=== PATIENT | male | born 2000 | race Caucasian/White ===

== ENCOUNTER 2023-07-26 13:45 | Emergency (ER) | payer OTHER ==
[~2023-07-26] VITALS: Ht 170.2 cm; Wt 87.0 kg
[2023-07-26 13:45] VITALS: BP 143/71; TEMP 98.1; O2SAT 97
[2023-07-26 16:18] LABS: Trichomonas vaginalis (AMP) NOT DETECTED (NEGATIVE)
[2023-07-26 16:41] LABS: GC DNA AMPLIFICATION NEGATIVE (NEGATIVE)
[2023-07-26] MEDS ORDERED: IBUP-1022 PO (16:41)
== END 2023-07-26 16:59 | disposition home or self-care (01) ==
LOC: M ED 13:45
DX: N50.3 Cyst of epididymis (principal); Z79.1 Long term (current) use of non-steroidal anti-inflammatories (NSAID)

== ENCOUNTER 2023-08-28 18:03 | Emergency (ER) | payer OTHER ==
[~2023-08-28] VITALS: Ht 170.2 cm; Wt 88.0 kg
[~2023-08-28 18:03] MED LIST: IBUP-1022 PO
[2023-08-28] MEDS: KETOROLAC 60MG 2ML VIAL IM ONE (19:38)
[2023-08-28 20:05] LABS: Trichomonas vaginalis (AMP) NOT DETECTED (NEGATIVE)
[2023-08-28 20:28] LABS: GC DNA AMPLIFICATION NEGATIVE (NEGATIVE)
[2023-08-28] MEDS ORDERED: IBUP-1022 PO (21:06)
[2023-08-28 21:18] VITALS: BP 132/68; TEMP 98.3; O2SAT 98
== END 2023-08-28 21:28 | disposition home or self-care (01) ==
LOC: M ED 18:03
DX: N45.2 Orchitis (principal); F17.290 Nicotine dependence, other tobacco product, uncomplicated; Z79.1 Long term (current) use of non-steroidal anti-inflammatories (NSAID)
CPT/HCPCS: 76870; 81001; 87661; 87810; 87850; 93976; 96372; 99284; J1885

== ENCOUNTER → 2023-10-05 | Outpatient (CLI) | payer OTHER ==
[2023-10-05 10:41] LABS: HEMATOCRIT 45.9 % (42.0-52.0); HEMOGLOBIN 16.4 g/dl (13.5-17.5); MEAN CORPUSCULAR HEMOGLOBIN 32.2 pg (27.0-33.0); MEAN CORPUSCULAR HGB CONC 35.7 g/dl (32.0-36.5); PLATELET COUNT, AUTOMATED 248 10^3/uL (150-450); WHITE BLOOD COUNT 5.1 10^3/uL (4.0-10.0)
[2023-10-05 11:04] LABS: LDH LACTATE DEHYDROGENASE 140 U/L (120-246)
[2023-10-05 11:05] LABS: ALBUMIN 4.4 G/DL (3.2-5.2); ALKALINE PHOSPHATASE 88 U/L (46-116); ALT/SGPT 54 U/L (7.0-40); AST/SGOT 26 U/L (<34); BILIRUBIN,TOTAL 0.6 MG/DL (0.3-1.2); BLOOD UREA NITROGEN 20 MG/DL (9-23); CALCIUM LEVEL 9.1 MG/DL (8.5-10.1); CARBON DIOXIDE LEVEL 26 MMOL/L (20-31); CHLORIDE LEVEL 109 MMOL/L (98-107); CREATININE FOR GFR 1.03 MG/DL (0.70-1.30); GLOMERULAR FILTRATION RATE > 60.0 (>60); GLUCOSE, FASTING 86 MG/DL (60-100); POTASSIUM SERUM 4.2 MMOL/L (3.5-5.1); SODIUM LEVEL 141 MMOL/L (136-145); TOTAL PROTEIN 7.1 G/DL (5.7-8.2)
[2023-10-05 12:36] LABS: APPEARANCE, URINE CLEAR (CLEAR); BACTERIA, URINE AUTO NEGATIVE (NEGATIVE); BILIRUBIN, URINE AUTO NEGATIVE (NEGATIVE); BLOOD, URINE BLOOD NEGATIVE (NEGATIVE); COLOR, URINE YELLOW (YELLOW); GLUCOSE, URINE (UA) AUTO NEGATIVE (NEGATIVE); KETONE, URINE AUTO NEGATIVE (NEGATIVE); LEUKOCYTE ESTERASE, URINE AUTO NEGATIVE (NEGATIVE); MUCUS, URINE SMALL (NEGATIVE); NITRITE, URINE AUTO NEGATIVE (NEGATIVE); PROTEIN, URINE AUTO NEGATIVE (NEGATIVE); RBC, URINE AUTO 1 /HPF (0-3); SPECIFIC GRAVITY URINE AUTO 1.027 (1.002-1.035); SQUAMOUS EPITHELIAL CELL UR AU 0 /HPF (0-6); UROBILINOGEN, URINE AUTO 0.2 mg/dL (0.0-2.0); WBC, URINE AUTO 1 /HPF (0-3)
== END ==
LOC: M LAB 09:49
PROVIDERS: ATTEND Urology
DX: N50.82 Scrotal pain (principal)

== ENCOUNTER 2023-10-13 09:38 | Day surgery (SDC) | payer OTHER ==
[~2023-10-13] VITALS: Ht 170.2 cm; Wt 85.4 kg
[~2023-10-13 09:38] MED LIST changes: +TRAZ-252 PO
[2023-10-13] MEDS: LR 1,000 ML IV SCH (10:24)
[2023-10-13] MEDS ORDERED: LIDOCAINE 2% 100MG/5ML SDV (FOR ANES.) As Ordered ONE (11:32)
[2023-10-13] MEDS ORDERED: KETOROLAC 60MG 2ML VIAL As Ordered ONE (11:32)
[2023-10-13] MEDS ORDERED: fentaNYL 100 MCG/2 ML INJECTION As Ordered ONE (11:32)
[2023-10-13] MEDS ORDERED: ONDANSETRON 4MG 2ML VIAL As Ordered ONE (11:32)
[2023-10-13] MEDS ORDERED: propofoL 200 MG/20 ML VIAL As Ordered ONE (11:32)
[2023-10-13] MEDS ORDERED: MIDAZOLAM INJ 2MG/2ML VIAL As Ordered ONE (11:32)
[2023-10-13] MEDS ORDERED: ACETAMINOPHEN 1000MG 100ML IV BAG As Ordered ONE (11:33)
[2023-10-13] MEDS: ceFAZolin SOD 2 GM in IV 1 EA IV ONE (12:00)
[2023-10-13] MEDS: BACITRACIN OINTMENT 30GM TUBE As Ordered ONE (12:28)
[2023-10-13] MEDS: LIDOCAINE 1% SDV 30ML VIAL As Ordered ONE (12:31)
[2023-10-13] MEDS ORDERED: ONDANSETRON 4MG 2ML VIAL IV PRN (12:40)
[2023-10-13] MEDS ORDERED: fentaNYL 100 MCG/2 ML INJECTION IV PRN (12:40)
[2023-10-13] MEDS ORDERED: CEPH500C PO (12:43)
[2023-10-13] MEDS ORDERED: HYDR-3713 PO (12:43)
[2023-10-13] MEDS: oxyCODONE 5MG TAB PO PRN (13:04)
[2023-10-13 14:07] VITALS: BP 133/70; TEMP 97.5; O2SAT 100
== END 2023-10-13 14:08 | disposition home or self-care (01) ==
LOC: M SDC 09:38
PROVIDERS: ATTEND Urology
DX: N50.3 Cyst of epididymis (principal); N50.82 Scrotal pain; F17.290 Nicotine dependence, other tobacco product, uncomplicated; Z79.899 Other long term (current) drug therapy
CPT/HCPCS: 54830; 88305; J0131; J0665; J0690; J1100; J1885; J2250; J2405; J3010

== ENCOUNTER 2023-11-02 15:13 | Emergency (ER) | payer OTHER ==
[~2023-11-02] VITALS: Ht 170.2 cm; Wt 88.8 kg
[~2023-11-02 15:13] MED LIST changes: +CEPH500C PO; +HYDR-3713 PO
[2023-11-02] MEDS: KETOROLAC 60MG 2ML VIAL IM ONE (17:28)
[2023-11-02] MEDS ORDERED: IBUP-1022 PO (18:14)
[2023-11-02 18:41] VITALS: BP 137/78; TEMP 98.3; O2SAT 97
== END 2023-11-02 18:46 | disposition home or self-care (01) ==
LOC: M ED 15:13
DX: N50.811 Right testicular pain (principal); F17.210 Nicotine dependence, cigarettes, uncomplicated; Z79.1 Long term (current) use of non-steroidal anti-inflammatories (NSAID); Z79.899 Other long term (current) drug therapy
CPT/HCPCS: 76870; 81001; 93976; 96372; 99283; J1885